=== PATIENT | male | born 1975 | race Caucasian/White ===

== ENCOUNTER 2017-09-10 19:38 | Emergency (ER) | payer MEDICAID, OTHER ==
[2017-09-10] MEDS ORDERED: Morphine 4 MG/ML Syringe IVPUSH ONE (19:55)
[2017-09-10] MEDS ORDERED: Morphine 10 MG/ML Syringe ONE (20:01)
[2017-09-10] MEDS ORDERED: Sodium Chloride 0.9% 10 ML Syringe FLUSH PRN (20:08)
[2017-09-10] MEDS ORDERED: Iopamidol 755 Mg/ML 75 ML Bottle IV ONE (20:54)
[2017-09-10] MEDS ORDERED: Azithromycin 250 MG Tab PO ONE (22:21)
--- NOTE | 2017-09-10 23:56 | ER ---
DATE SEEN: 09/10/2017 CHIEF COMPLAINT: Pain in the chest. HISTORY OF PRESENT ILLNESS: Matty is a 42-year-old male brought in by family because of pain in the right side of the chest that started yesterday and got worse tonight. Worse with breathing, but no associated shortness of breath. PAST MEDICAL HISTORY: No active medical problems. 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 SOCIAL HISTORY: Drinks alcohol. In fact, he has been drinking tonight. FAMILY HISTORY: Noncontributory. PHYSICAL EXAMINATION: VITAL SIGNS: His blood pressure and temperature are normal. His pulse is 122. He has normal oxygenation while breathing on room air. ENT: Negative. CHEST: Clear. CARDIOVASCULAR: Normal. ABDOMEN: Soft and there is tenderness in the right upper quadrant. No rebound. LABORATORIES: D-dimer was slightly up, 1.55. Normal white cell count. Troponin negative. EKG, normal sinus rhythm, and chest CT revealed an infectious process on the right side of the chest and marked thickening of the esophagus, possibly due to esophagitis or malignancy. FINAL IMPRESSION: 1. Community-acquired pneumonia. 2. Esophagitis, rule out malignancy. TREATMENT: I gave him a prescription for Z-Eric. I advised him to use Prilosec OTC 20 mg once a day. Abstain from alcohol, and he has a followup appointment in 2 days with his PCP. I recommended that he have an endoscopy, upper GI. Return to the ED with any worsening symptoms. /[id number] CHANCE/LILLIE
[2017-09-11 03:31] VITALS: BP 127/96
--- NOTE | 2017-09-11 11:58 | CR ---
INDICATION: Chest pain right side. CHEST: PA and lateral views of the chest were obtained, poor inspiration is suggested. A definite active infiltrate or effusion was not identified, although somewhat heavy markings emphasized by the poor inspiration make it difficult to exclude patchy bronchopneumonia, especially at the left mid to lower lung field. Patchy pneumonia certainly cannot be excluded on the left; however, no consolidating pneumonia or definite effusion was seen. The heart did not appear enlarged. The mediastinum and bony thorax were unremarkable. Overlying EKG leads are noted. IMPRESSION: No definite acute process but difficult to exclude patchy bronchopneumonia in the left mid to lower lung field. MTDD
--- NOTE | 2017-09-11 13:25 | US ---
INDICATION: Right upper quadrant pain. RIGHT UPPER QUADRANT/GALLBLADDER ULTRASOUND: Multiple ultrasonic images were obtained 09/10/2017 and revealed the gallbladder to appear normal, measuring 6.5 x 2.1 x 2.4 cm. The right kidney appeared normal, measuring 10.8 x 4.5 x 5.6 cm. The common bile duct was normal in caliber at 3.7 mm. The liver is increased in echogenicity, compatible with fatty infiltration. The IVC was phasic. The pancreas was not visualized due to intestinal gas. IMPRESSION: 1. Fatty infiltration of the liver. 2. Pancreas not adequately visualized due to intestinal gas and stool overlying the pancreas. MTDD
== END 2017-09-10 22:45 | disposition home or self-care (01) ==
LOC: FB.ED 19:38
DX: J18.9 Pneumonia, unspecified organism (principal); K20.9 Esophagitis, unspecified
CPT/HCPCS: 36415; 71046; 71275; 76705; 80053; 82150; 84484; 85025; 85379; 93005; 96374; 99285; A9270; J2270; J7050; Q9967